=== PATIENT | female | born 1975 | race Caucasian/White ===

== ENCOUNTER 2017-01-24 07:37 | Day surgery (SDC) | payer OTHER ==
[2017-01-24 07:53] VITALS: BMI 28.0
[2017-01-24 08:07] VITALS: O2SAT 100
[2017-01-24] MEDS ORDERED: Lactated Ringer's 1,000 ML IV ONE (09:45)
[2017-01-24] MEDS ORDERED: Lidocaine Hydrochloride 5 ML INJ ONE (10:06)
[2017-01-24] MEDS ORDERED: Propofol 10 mg/ml Inj (20 ML) ONE (10:06)
[2017-01-24] MEDS ORDERED: Midazolam 2 MG/2 ML VIAL ONE (10:06)
[2017-01-24 10:52] VITALS: TEMP 98.4
[2017-01-24 11:47] VITALS: PULSE 60; RESP 18
[2017-01-24 11:48] VITALS: BP 126/75
== END 2017-01-24 11:30 | disposition home or self-care (01) ==
LOC: C.ENDO 07:37
PROVIDERS: ATTEND Internal Medicine Gastroenterology
DX: K21.9 Gastro-esophageal reflux disease without esophagitis (principal)
CPT/HCPCS: 43239; 84703; 88305; J2250; J2704; J7120